=== PATIENT | male | born 1980 | race Caucasian/White ===

== ENCOUNTER 2019-04-10 22:27 | Emergency (ER) | payer OTHER ==
[~2019-04-10] VITALS: Ht 185.4 cm; Wt 86.2 kg
[2019-04-10 22:28] VITALS: BP 122/66
--- NOTE | 2019-04-10 22:43 | NUR ---
XRAY AT BEDSIDE.
--- NOTE | 2019-04-10 22:45 | NUR ---
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 PT STATES HE WAS SWIMMING AND HIT LEFT SECOND TOE ON HIS COUSINS ANKLE. REDNESS, ECCYMOSIS, AND SWELLING PRESENT. LIMITED ROM. -- PT AWAKE, ALERT, CALM, COOPERATIVE. ANSWERS QUESTIONS APPROPRIATELY. BEHAVIOR AGE APPROPRIATE. -- SKIN PINK, WARM, DRY. BREATHING EVEN, UNLABORED. -- PEDAL PULSES EQUAL, STRONG. CAP REFILL BRISK; LESS THAN 3 SECONDS. PMH-- DENIES RX-- DENIES
--- NOTE | 2019-04-10 23:15 | NUR ---
ORTHO SHOE PLACED ON L FOOT SIZE MEDIUM MENS
--- NOTE | 2019-04-10 23:16 | NUR ---
PT GIVEN INSTRUCTION ON PROPER USE OF CRUTCHES. PT CRUTCHES FOTTED TO PT HEIGHT AND ARM LENGTH. PT DEMONSTRATED PROPER USE FOR APPROXIMATELY 40 FEET, PT STATED HE FELT COMFORTABLE WITH USE.
[2019-04-10 23:29] VITALS: BP 122/66
--- NOTE | 2019-04-10 23:29 | NUR ---
Patient discharged with v/s stable. Written and verbal after care instructions given and explained. Patient alert, oriented and verbalized understanding of instructions. Ambulatory with steady gait. All questions addressed prior to discharge. ID band removed. Patient advised to follow up with PMD. Rx of NAPROSYN WAS given. Patient educated on indication of medication including possible reaction and side effects. Opportunity to ask questions provided and answered. Addendum: 04/10/19 at 2342 by [facility] Patient discharged with v/s stable. Written and verbal after care instructions given and explained. Patient alert, oriented and verbalized understanding of instructions. Ambulatory WITH CRUTCHES. All questions addressed prior to discharge. ID band removed. Patient advised to follow up with PMD. Rx of NAPROSYN WAS given. Patient educated on indication of medication including possible reaction and side effects. Opportunity to ask questions provided and answered.
== END 2019-04-10 23:29 | disposition home or self-care (01) ==
LOC: MED 22:27
DX: S92.322A Displaced fracture of second metatarsal bone, left foot, initial encounter for closed fracture (principal); Z98.890 Other specified postprocedural states; W51.XXXA Accidental striking against or bumped into by another person, initial encounter; Y93.11 Activity, swimming; Y92.34 Swimming pool (public) as the place of occurrence of the external cause; Y99.8 Other external cause status
CPT/HCPCS: 29515; 73660; 99283; Q0092